=== PATIENT | female | born 1960 | race Caucasian/White ===

== ENCOUNTER 2022-05-23 06:35 | Day surgery (SDC) | payer OTHER, MEDICAID, SELFPAY ==
[2022-05-20 09:13] VITALS: BMI 34.7
[2022-05-23 06:50] VITALS: BP 162/107; PULSE 69; RESP 18; TEMP 36.6; O2SAT 96
[2022-05-23] MEDS: sodium chloride 0.9% 1,000 ML 30 ML IV (07:02)
--- NOTE | 2022-05-23 07:19 | ANES.PREANE2 ---
Pre-Anesthetic Assessment Height/Weight: Height 1.75 m Weight 106.594 kg Temp Pulse Resp BP Pulse Ox O2 Del Method 97.8 F 69 18 162/107 96 05/23/22 06:50 05/23/22 06:50 05/23/22 06:50 05/23/22 06:50 05/23/22 06:50 05/23/22 06:50 Preop Diagnosis: Abnormal CT of the esophagus. Operation Date: 05/23/22 08:00 Proposed Procedures p EGD 15818,R93.3(Not Applicable) - Solo Woodward MD Familial anesthetic complications: none Was Beta Cheyanne taken within 24 hours: N/A Was Clonidine taken within 24 hours: N/A Last intake: Intake Last Liquid Date 05/22/22 Last Liquid Time 22:30 Last Solid Date 05/22/22 Last Solid Time 21:30 Last Intake: 22:30 Social No alcohol and No tobacco Exam alert and oriented x 3 Airway Submandibular: within normal limits Cervical ROM: within normal limits Dentition: false (top) History/ROS No significant history except as noted Pulmonary None reported CV/HEM Hypertension None reported Hepatic None reported GI None reported Metabolic None reported Musc/skel None reported Neuropsych None reported Anesthetic Plan ASA status: 2 Anesthesia: Anesthesia Evaluation and MAC Risk of > 500 ml blood loss (7ml/kg in children): No Medications/Allergies Home Medications Medication Instructions Recorded Confirmed Last Taken Type exemestane 25 mg tablet (Aromasin) 25 mg PO DAILY 05/03/22 05/23/22 05/22/22 History naproxen sodium 220 mg tablet 220 mg PO Q8H PRN Pain 05/03/22 05/23/22 05/21/22 History (Aleve) omeprazole 40 mg capsule,delayed 40 mg PO DAILY 05/03/22 05/23/22 05/22/22 History release venlafaxine 37.5 mg 37.5 mg PO DAILY 05/03/22 05/20/22 Unknown History capsule,extended release 24 hr Allergies Allergy/AdvReac Type Severity Reaction Status Date / Time No Known Allergies Allergy Unverified 05/16/22 13:42 Current Medications Generic Name Dose Route Start Last Admin Trade Name Freq PRN Reason Stop Dose Admin Sodium Chloride 1,000 mls @ 30 mls/hr 05/23/22 06:45 05/23/22 07:02 Sodium Chloride 0.9% IV 30 mls/hr .Q24H LEROY Administration PFSH Anesthesia Family History Family/Other Breast cancer Ovarian cancer Social History Smoking and tobacco status: never smoked Second hand smoke exposure: No Smoking risk assessment/counseling performed?: No Alcohol intake: current Alcohol intake frequency: holidays/special occasions only Desire information about alcohol rehabilitation?: No Counseling given: No Desire information about substance/drug rehabilitation?: No Counseling given: No Data Anesthesia Cardiac Studies: No Data to Display
--- NOTE | 2022-05-23 07:38 | W.PM.OPSFHP ---
Same Day Surgery H&P Indication for Procedure/HPI DATE OF PROCEDURE: May 23, 2022 CHIEF COMPLAINT/INDICATIONFOR SURGICAL PROCEDURE: Abnormal CT of the esophagus PREOP DIAGNOSIS: Abnormal CT of the esophagus. PLANNED PROCEDURE: Operation Date: 05/23/22 08:00 Proposed Procedures p EGD 64453,R93.3(Not Applicable) - Solo Woodward MD Medications/Allergies* Home Medications Medication Instructions Recorded Confirmed Type exemestane 25 mg tablet (Aromasin) 25 mg PO DAILY 05/03/22 05/23/22 History naproxen sodium 220 mg tablet 220 mg PO Q8H PRN Pain 05/03/22 05/23/22 History (Aleve) omeprazole 40 mg capsule,delayed 40 mg PO DAILY 05/03/22 05/23/22 History release venlafaxine 37.5 mg 37.5 mg PO DAILY 05/03/22 05/20/22 History capsule,extended release 24 hr Allergies/Adverse Reactions Allergy/AdvReac Type Severity Reaction Status Date / Time No Known Allergies Allergy Unverified 05/16/22 13:42 Current Medications: Generic Name Dose Route Start Last Admin Trade Name Freq PRN Reason Stop Dose Admin Sodium Chloride 1,000 mls @ 30 mls/hr 05/23/22 06:45 05/23/22 07:02 Sodium Chloride 0.9% IV 30 mls/hr .Q24H LEROY Administration Pertinent History/Comorbid Conditions* Family History (Updated 05/03/22 @ 09:18 by Marley Duncan LPN) Ovarian cancer Family/Other Breast cancer Family/Other Social History Smoking and tobacco status: never smoked Second hand smoke exposure: No Smoking risk assessment/counseling performed?: No Alcohol intake: current Alcohol intake frequency: holidays/special occasions only Desire information about alcohol rehabilitation?: No Counseling given: No Desire information about substance/drug rehabilitation?: No Counseling given: No Pertinent Exam Findings alert, oriented x 3, clear to auscultation bilaterally, regular rate & rhythm, operative site marked and procedure specific exam findings Recommendations Surgery/Procedure today Coding Level of Care Code Acute Glaucoma Specialist for Lidia Stapleton
[2022-05-23 08:23] VITALS: BP 155/87; PULSE 69; RESP 18; TEMP 36.2; O2SAT 93
--- NOTE | 2022-05-23 08:26 | ANE.PACU2 ---
Inpatient post-anesthesia follow up: Airway intact: Yes Vital signs: Temperature 97.8 F Pulse Rate 69 Respiratory Rate 18 Blood Pressure 162/107 Pulse Oximetry 96 Oxygen Delivery Me thod Room Air Oxygen Flow Rate Fraction of Inspir ed Oxygen Hydration adequate: Yes Nausea and vomiting: No Pain level: 1 Mental status: Baseline
[2022-05-23 08:35] VITALS: BP 141/87; PULSE 66; RESP 18; O2SAT 94
== END 2022-05-23 08:43 | disposition home or self-care (01) ==
PROVIDERS: PCP Student in an Organized Health Care Education/Training Program; Visit Provider Internal Medicine
PROC: 0DJ08ZZ Inspection of Upper Intestinal Tract, Via Natural or Artificial Opening Endoscopic (ICD-10-PCS; CPT 43235; principal; 2022-05-23 08:00)
DX: R93.3 Abnormal findings on diagnostic imaging of other parts of digestive tract (principal); K44.9 Diaphragmatic hernia without obstruction or gangrene; K20.90 Esophagitis, unspecified without bleeding
CPT/HCPCS: 43239; 88305; J2704; J7030

== ENCOUNTER 2024-04-24 12:16 | Oncology outpatient (recurring) (ONCR) | payer MEDICARE, MEDICAID, SELFPAY | END 2024-04-27 23:59 | disposition home or self-care (01) | PROVIDERS: PCP Student in an Organized Health Care Education/Training Program; Visit Provider Internal Medicine Medical Oncology | DX: C50.812 Malignant neoplasm of overlapping sites of left female breast (principal); K22.70 Barrett's esophagus without dysplasia | CPT/HCPCS: 99204 ==

== ENCOUNTER → 2024-07-09 09:53 | Outpatient (BNVA) | payer MEDICARE, SELFPAY | PROVIDERS: PCP Student in an Organized Health Care Education/Training Program; Visit Provider Student in an Organized Health Care Education/Training Program | DX: K21.9 Gastro-esophageal reflux disease without esophagitis (principal); K22.70 Barrett's esophagus without dysplasia | CPT/HCPCS: 99204 ==

== ENCOUNTER 2024-08-22 08:27 | Day surgery (SDC) | payer MEDICARE, SELFPAY ==
[2024-08-22 09:07] VITALS: BP 139/95; PULSE 72; RESP 16; TEMP 36.1; O2SAT 95
[2024-08-22] MEDS: sodium chloride 0.9% 500 ML 15 ML IV (09:09)
--- NOTE | 2024-08-22 09:19 | P.ANESASSM_ITS ---
Pre-Anesthetic Assessment Height/Weight: Height 1.75 m Weight 108.862 kg Temp Pulse Resp BP Pulse Ox O2 Del Method 97 F L 72 16 139/95 95 Room Air 08/22/24 09:07 08/22/24 09:07 08/22/24 09:07 08/22/24 09:07 08/22/24 09:07 08/22/24 09:07 Preop Diagnosis: GERD Operation Date: 08/22/24 09:45 Proposed Procedures p EGD - 16238, K21.9(Not Applicable) - Saleem Muñoz MD Familial anesthetic complications: none Was Beta Cheyanne taken within 24 hours: N/A Was Clonidine taken within 24 hours: N/A Last intake: Intake Last Liquid Date 08/21/24 Last Liquid Time 23:30 Last Solid Date 08/21/24 Last Solid Time 20:30 Social No alcohol and No tobacco Exam alert, oriented x 3, clear to auscultation bilaterally and regular rate & rhythm Airway Submandibular: within normal limits Cervical ROM: within normal limits Mallampati: Class II Dentition: false (removed) Pulmonary None reported CV/HEM Hypertension None reported Hepatic None reported GI Gastroesophageal Reflux Disease and Hiatal Hernia Metabolic None reported Musc/skel None reported Neuropsych Neuropathy (bilateral LE) Anesthetic Plan ASA status: 2 Anesthesia: MAC Medications/Allergies Home Medications Medication Instructions Recorded Confirmed Last Taken Type omeprazole 40 mg capsule,delayed 40 mg PO DAILY 05/03/22 08/22/24 08/21/24 History release losartan 25 mg tablet 50 mg PO DAILY 07/09/24 08/22/24 08/21/24 History Allergies Allergy/AdvReac Type Severity Reaction Status Date / Time No Known Allergies Allergy Verified 07/09/24 10:01 [facility] Anesthesia Medical History Barretts esophagus Peripheral neuropathy due to chemotherapy GERD (gastroesophageal reflux disease) Hiatal hernia Breast cancer Surgical History (Updated 07/09/24 @ 10:05 by IRIS Sanchez) History of cholecystectomy History of esophagogastroduodenoscopy (EGD) (05/23/22) History of reconstruction of both breasts History of bilateral mastectomy (06/25/13) Bilateral mastectomy, left axillary sentinel lymph node biopsy, left axillary lymph node dissection Family History Family/Other Breast cancer Ovarian cancer Father Heart attack Brother COPD (chronic obstructive pulmonary disease) Mother Breast cancer Dementia Kidney failure Social History (Updated 07/09/24 @ 10:06 by IRIS Sanchez) Smoking and tobacco/nicotine status: never used tobacco/nicotine Second hand smoke exposure: No Alcohol intake: current Alcohol intake frequency: holidays/special occasions only Substance/Drug Use: never Data Anesthesia Cardiac Studies: No Data to Display
--- NOTE | 2024-08-22 09:40 | W.PM.OPSFHP ---
Same Day Surgery H&P Indication for Procedure/HPI DATE OF PROCEDURE: August 22, 2024 CHIEF COMPLAINT/INDICATIONFOR SURGICAL PROCEDURE: GERD PREOP DIAGNOSIS: GERD PLANNED PROCEDURE: Operation Date: 08/22/24 09:45 Proposed Procedures p EGD - 91738, K21.9(Not Applicable) - Saleem Muñoz MD Medications/Allergies* Home Medications Medication Instructions Recorded Confirmed Type omeprazole 40 mg capsule,delayed 40 mg PO DAILY 05/03/22 08/22/24 History release losartan 25 mg tablet 50 mg PO DAILY 07/09/24 08/22/24 History Allergies/Adverse Reactions Allergy/AdvReac Type Severity Reaction Status Date / Time No Known Allergies Allergy Verified 07/09/24 10:01 Pertinent History/Comorbid Conditions* Medical History (Updated 04/28/24 @ 00:01 by Jerome Moreira MD) Barretts esophagus Peripheral neuropathy due to chemotherapy GERD (gastroesophageal reflux disease) Hiatal hernia Breast cancer Surgical History (Updated 04/27/24 @ 23:14 by Jerome Moreira MD) History of cholecystectomy History of esophagogastroduodenoscopy (EGD) (05/23/22) History of reconstruction of both breasts History of bilateral mastectomy (06/25/13) Bilateral mastectomy, left axillary sentinel lymph node biopsy, left axillary lymph node dissection Family History (Updated 04/27/24 @ 23:22 by Jerome Moreira MD) Ovarian cancer Family/Other Dementia Mother Heart attack Father Breast cancer Family/Other Mother Kidney failure Mother COPD (chronic obstructive pulmonary disease) Brother Social History Smoking and tobacco/nicotine status: never used tobacco/nicotine Second hand smoke exposure: No Alcohol intake: current Alcohol intake frequency: holidays/special occasions only Substance/Drug Use: never Pertinent Exam Findings alert, oriented x 3, clear to auscultation bilaterally, regular rate & rhythm and procedure specific exam findings Abdomen soft, nt, nd Recommendations Surgery/Procedure today Coding Level of Care Code Acute Code for Chg Fwd
[2024-08-22 09:56] VITALS: BP 110/58; PULSE 77; RESP 18; TEMP 36.1; O2SAT 92
[2024-08-22 10:11] VITALS: BP 111/68; PULSE 77; RESP 18; O2SAT 92
--- NOTE | 2024-08-22 10:39 | ANE.PACU2 ---
Inpatient post-anesthesia follow up: Airway intact: Yes Vital signs: Temperature 97.0 F Pulse Rate 77 Respiratory Rate 18 Blood Pressure 111/68 Pulse Oximetry 92 Oxygen Delivery Me thod Room Air Oxygen Flow Rate Fraction of Inspir ed Oxygen Hydration adequate: Yes Nausea and vomiting: Yes Pain level: 1 Mental status: Baseline
== END 2024-08-22 10:39 | disposition home or self-care (01) ==
PROVIDERS: Visit Provider Student in an Organized Health Care Education/Training Program
PROC: 0DJ08ZZ Inspection of Upper Intestinal Tract, Via Natural or Artificial Opening Endoscopic (ICD-10-PCS; principal; 2024-08-22 09:45)
DX: K21.9 Gastro-esophageal reflux disease without esophagitis (principal); K20.90 Esophagitis, unspecified without bleeding; Z85.3 Personal history of malignant neoplasm of breast; I10 Essential (primary) hypertension
CPT/HCPCS: 43239; 88305; J2704; J7040

== ENCOUNTER → 2024-09-05 14:37 | Outpatient (BNVA) | payer MEDICARE, SELFPAY | PROVIDERS: Visit Provider Student in an Organized Health Care Education/Training Program | DX: K22.70 Barrett's esophagus without dysplasia (principal) | CPT/HCPCS: 99213 ==

== ENCOUNTER 2025-04-24 15:01 | Oncology outpatient (recurring) (ONCR) | payer MEDICARE, SELFPAY | END 2025-04-27 23:59 | disposition home or self-care (01) | PROVIDERS: Visit Provider Internal Medicine | DX: Z08 Encounter for follow-up examination after completed treatment for malignant neoplasm (principal); Z85.3 Personal history of malignant neoplasm of breast; K22.70 Barrett's esophagus without dysplasia; Z90.13 Acquired absence of bilateral breasts and nipples; Z92.3 Personal history of irradiation; Z92.21 Personal history of antineoplastic chemotherapy | CPT/HCPCS: 99213 ==

== ENCOUNTER → 2025-05-15 13:47 | Outpatient (BNVA) | payer MEDICARE, SELFPAY | PROVIDERS: Visit Provider Nurse Practitioner Family | DX: D22.5 Melanocytic nevi of trunk (principal); L81.4 Other melanin hyperpigmentation; D48.5 Neoplasm of uncertain behavior of skin | CPT/HCPCS: 11102; 99213 ==